=== PATIENT | female | born 1960 ===

== ENCOUNTER → 2020-11-17 | Outpatient (CLI) | payer MEDICARE, OTHER ==
[2020-11-17 12:31] VITALS: BP 134/81; PULSE 86; RESP 16; TEMP 100
--- NOTE | 2020-11-17 12:54 | P.PAINCN ---
History of Present Illness - Reason for Consult Consult date: 11/17/20 - History of Present Illness Since 60 years old female with a chronic history of severe low back pain and mid back pain and neck pain, she reported that the pain started since she was teenager, and increased in intensity over time, patient had interventional pain management procedure done at [place], and she had RFA of the medial branch lumbar area was excellent pain relief, she reported that currently her low back pain is bothering her the most and is constant, localized in the low back area radiating to the buttock bilaterally and into the posterior aspect of the lower extremity, interfere with the quality of life, interfere with activity of daily livings, she denies any fever or night sweats which she denies any change in the bowel movement or urination, she has difficulty ambulating secondary to the intensity of the pain Past Medical History Past Medical History: Cancer, COPD, CVA/TIA, Hyperlipidemia, Myocardial Infarction ([place]) Additional Past Medical History / Comment(s): states current mass rt breast, states multiple strokes, no residual effects, frequent nausea, had skin ca on nose, chronic back pain Last Myocardial Infarction Date:: 1997 History of Any Multi-Drug Resistant Organisms: None Reported Past Surgical History: Section, Hysterectomy, Orthopedic Surgery Additional Past Surgical History / Comment(s): reconstruction of nose r/t cancer, left knee, Past Anesthesia/Blood Transfusion Reactions: No Reported Reaction Past Psychological History: Bipolar Smoking Status: Current every day smoker Past Alcohol Use History: None Reported Additional Past Alcohol Use History / Comment(s): smokes 2ppd from age 14 Past Drug Use History: Marijuana Medications and Allergies Home Medications Medication Instructions Recorded Confirmed Type Albuterol Nebulized [Ventolin 2.5 mg INHALATION Q4H PRN 11/14/20 11/14/20 History Nebulized] Albuterol Sulfate [Ventolin HFA] 1 - 2 puff INHALATION Q6H PRN 11/14/20 11/14/20 History EPINEPHrine (Auto Inject) [Epipen] 0.3 mg IM ONCE PRN 11/14/20 11/14/20 History Furosemide [Lasix] 20 mg PO DAILY PRN 11/14/20 11/14/20 History Metoclopramide HCl [Reglan] 10 mg PO DAILY 11/14/20 11/14/20 History Mirtazapine [Remeron] 30 mg PO DAILY 11/14/20 11/14/20 History Ondansetron [Zofran] 4 mg PO Q12HR PRN 11/14/20 11/14/20 History Pitavastatin Calcium [Livalo] 2 mg PO DAILY 11/14/20 11/14/20 History Ziprasidone HCl [Geodon] 60 mg PO DAILY 11/14/20 11/14/20 History busPIRone HCl [Buspar] 5 mg PO BID 11/14/20 11/14/20 History Allergies Allergy/AdvReac Type Severity Reaction Status Date / Time bee venom protein (honey bee) Allergy Anaphylaxis Verified 11/14/20 14:34 clonazepam [From Klonopin] Allergy Unknown Verified 11/14/20 14:34 Iodinated Contrast Media Allergy Swelling Verified 11/14/20 14:34 Penicillins Allergy Swelling Verified 11/14/20 14:34 shellfish derived [Shellfish] Allergy Swelling Verified 11/14/20 14:34 Physical Exam Vitals: Vital Signs Temp Pulse Resp BP Pulse Ox 11/17/20 12:23 100.0 F H 86 16 134/81 92 L Social history =smok tobacco and he used marijuana Physical Examinations : -Constitutiona : Cooperative , not in acute distress . -HEENT : nech : supple , no Lymphadenopathy , normal thyroid size . : eyes : no ptosis , no icterus, no photophobia . . - neurologic : Cranial nerve II to XII intact , no focal neurological deffecit . -psychatric : alert , oriented X 3 , appropriate affect , intact judgment and insight . -Lymphatic : no Lymphadenopathy . - musculoskeltal : Cervical Spine motor stregnth in the deltoid and biceps, normal right side , normal Left side motor stregnth biceps and the wrist extensors normal right side ,normal left side . motor stregnth in the triceps muscle . normal Right side , normal Left side deep tendon reflexes normal at the biceps , normal at Brachioradialis , normal at triceps. cervical facet loading test= Positive Bilaterally Spurling test= positive bilaterally. Neck distraction test= positive bilaterally. Edwardo sign= positive bilaterally. Lumber spine moter stegnth lower extremities ,thigh and legs 5/5 Right side , 5/5 Left side deep tendon reflexes : normal Knee Jerk , normal ankle Jerk lumber facet Loading Test =positive Right , positive Left Range of motion of the lumbar spine Flexion 30 degrees, extension 10 degrees strait leg raising test = positive at 30 degree Fabere test= positive Right , and positive LT . Sever tenderness over the Sacroiliac joint on the Right , and Left sides Gaenslen test= positive right ,and positive left . Seated flexion test= positive right ,and positive Left . Results Comments: MRI of the lumbar spine done in 2014 multilevel lumbar degenerative disc disease and multilevel foraminal stenosis and multilevel facet joint hypertrophy MRI of the cervical spine mild cervical canal stenosis and foraminal stenosis at C5 6 C6 7 MRI of the thoracic spine multilevel thoracic degenerative disc disease and multilevel thoracic facet arthropathy Assessment and Plan Plan: Assessment and plan=1-lumbar spondylosis with lumbar facet arthropathy without myelopathy. 2-bilateral sacroiliitis. 3-lumbar degenerative disc disease. 4-thoracic degenerative disc disease. 5-thoracic spondylosis with thoracic facet arthropathy. 6-cervical spinal stenosis. 7-6 cervical degenerative disc disease Time with Patient: Greater than 30 PQRS Measure Charge Sheet Measure #130: Documentation of Current Meds in Medical Chart: Patient's medications documented in chart Measure #226: Tobacco Use: Screen & Cessation Intervention: Pt screened for tobacco use AND intervention given Measure #111: Pneumonia Vaccination: Pneumococcal vaccine NOT administered or previously given Measure #47: Advance Care Plan: Advance care planning discussed & documented, pt chose/unable to give Measure #412: Opioid Treatment Agreement: No documentation of signed opioid treatment agreement Measure #408: Opioid Therapy Follow-up Evaluation: Patient had NO f/u eval min imum every 3 months during opioid therapy Measure #317: Preventitive Care & Scrn High Bld Press & F/U: Normal blood pressure, f/u not required Measure #128: Body Mass Index (BMI) Screening & Follow-up: BMI documented ABOVE normal parameters - f/u documented Measure #131: Pain Assessment & Follow-up: Pain positive & plan documented, Follow-up scheduled Measure #431: Unhealthy Alcohol Use Preventative Care & Scrn: Patient not identified as an unhealthy alcohol user PQRS Narrative: Blood Pressure 134/81 Pain Intensity [Back] 8 Scale Used Numeric (1 - 10) Hx Alcohol Use (MH) No Home Medications: Ambulatory Orders Albuterol Nebulized [Ventolin Nebulized] 2.5 mg INHALATION Q4H PRN 18/20 Albuterol Sulfate [Ventolin HFA] 1 - 2 puff INHALATION Q6H PRN 11/14/20 EPINEPHrine (Auto Inject) [Epipen] 0.3 mg IM ONCE PRN 11/14/20 Furosemide [Lasix] 20 mg PO DAILY PRN 11/14/20 Metoclopramide HCl [Reglan] 10 mg PO DAILY 11/14/20 Mirtazapine [Remeron] 30 mg PO DAILY 11/14/20 Ondansetron [Zofran] 4 mg PO Q12HR PRN 11/14/20 Pitavastatin Calcium [Livalo] 2 mg PO DAILY 11/14/20 Ziprasidone HCl [Geodon] 60 mg PO DAILY 11/14/20 busPIRone HCl [Buspar] 5 mg PO BID 11/14/20
== END | disposition home or self-care (01) ==
LOC: PNWHC3 12:04
PROVIDERS: ATTEND Specialist
DX: M48.02 Spinal stenosis, cervical region (principal); M51.34 Other intervertebral disc degeneration, thoracic region; M50.30 Other cervical disc degeneration, unspecified cervical region; M51.36 Other intervertebral disc degeneration, lumbar region; M47.814 Spondylosis without myelopathy or radiculopathy, thoracic region; M46.1 Sacroiliitis, not elsewhere classified; Z79.899 Other long term (current) drug therapy; Z88.0 Allergy status to penicillin; Z91.013 Allergy to seafood; Z91.048 Other nonmedicinal substance allergy status; Z88.8 Allergy status to other drugs, medicaments and biological substances
CPT/HCPCS: 99211